=== PATIENT | female | born 1970 | race Caucasian/White ===

== ENCOUNTER 2024-07-18 15:20 | Emergency (ER) | payer OTHER ==
[~2024-07-18] VITALS: Ht 170.2 cm; Wt 54.4 kg
[2024-07-18] MEDS: ACETAMINOPHEN ES 500 MG TABLET PO ONE (16:00)
[2024-07-18] MEDS: IBUPROFEN 400 MG TABLET PO ONE (17:13)
[2024-07-18 17:22] VITALS: BP 146/93; TEMP 98.2; O2SAT 99
== END 2024-07-18 17:23 | disposition left against medical advice (07) ==
LOC: ER 15:20
DX: R51.9 Headache, unspecified (principal); M54.2 Cervicalgia; M54.50 Low back pain, unspecified; M79.672 Pain in left foot; Z88.8 Allergy status to other drugs, medicaments and biological substances; Z91.041 Radiographic dye allergy status; Z86.59 Personal history of other mental and behavioral disorders; Z60.2 Problems related to living alone; W01.0XXA Fall on same level from slipping, tripping and stumbling without subsequent striking against object, initial encounter; Y93.89 Activity, other specified; Y92.89 Other specified places as the place of occurrence of the external cause; Y99.8 Other external cause status
CPT/HCPCS: 70450-TC; 72100-TC; 72125-TC; 82962-TC